=== PATIENT | female | born 1980 | race Caucasian/White ===

== ENCOUNTER → 2020-09-18 | Outpatient (CLI) | payer MEDICARE, OTHER ==
[~2020-09-18] MED LIST: FLEXERIL 10 MG10 MG PO; IBUPROFEN800 MG PO
== END ==
LOC: RAD 13:06
DX: M54.5 Low back pain (principal)
CPT/HCPCS: 72100

== ENCOUNTER 2021-03-31 17:30 | Emergency (ER) | payer MEDICARE, OTHER ==
[2021-03-31 18:42] LABS: HEMOGLOBIN 15.6 gm/dl (12.3-15.3); RED BLOOD COUNT 5.22 M/UL (4.00-5.10); WHITE BLOOD COUNT 13.4 K/UL (4.5-11.0)
[2021-03-31 19:02] LABS: BUN/CREATININE RATIO 20 (0-10)
[2021-04-01] MEDS ORDERED: LIDOCAINE PAIN1 EACH TP (00:28)
[2021-04-01] MEDS ORDERED: CYCLOBENZAPRINE10 MG PO (00:28)
== END 2021-04-01 00:30 | disposition home or self-care (01) ==
LOC: ER1 17:30
PROVIDERS: Physician Assistant
DX: M54.12 Radiculopathy, cervical region (principal); F17.200 Nicotine dependence, unspecified, uncomplicated; E11.9 Type 2 diabetes mellitus without complications
CPT/HCPCS: 71045; 80053; 82550; 82553; 83874; 84484; 85025; 85379; 93005; 99284

== ENCOUNTER → 2021-04-20 | Outpatient (CLI) | payer OTHER ==
[~2021-04-20] MED LIST changes: +CYCLOBENZAPRINE10 MG PO; +LIDOCAINE PAIN1 EACH TP
== END ==
LOC: US 10:23
DX: N95.0 Postmenopausal bleeding (principal)
CPT/HCPCS: 76856

== ENCOUNTER 2021-10-12 12:03 | Emergency (ER) | payer MEDICARE, OTHER ==
[2021-10-12 13:01] LABS: HEMOGLOBIN 15.1 gm/dl (12.3-15.3); RED BLOOD COUNT 4.79 M/UL (4.00-5.10); WHITE BLOOD COUNT 13.5 K/UL (4.5-11.0)
[2021-10-12 13:33] LABS: BUN/CREATININE RATIO 10 (0-10)
== END 2021-10-12 15:05 | disposition home or self-care (01) ==
LOC: ER1 12:03
PROVIDERS: Physician Assistant
DX: R51.9 Headache, unspecified (principal); E11.9 Type 2 diabetes mellitus without complications; F17.210 Nicotine dependence, cigarettes, uncomplicated
CPT/HCPCS: 70450; 80053; 84703; 85025; 85652; 86140; 96372; 99284; J1885